=== PATIENT | male | born 1990 ===

== ENCOUNTER 2017-03-01 19:06 | Emergency (ER) | payer OTHER ==
[2017-03-01 19:56] VITALS: BP 117/70; PULSE 75; TEMP 98.2; O2SAT 99
--- NOTE | 2017-03-01 21:17 | C.PDOC ---
History Of Present Illness 26 year old male presents to the ED with complaints of right hand pain to second and third fingers following an accident at work. Patient states while at work his hand was stuck between an elevator and wall while attempting to fix the elevator. He notes he was wearing double gloves. Patient denies changes in sensation or other injuries. Time Seen by Provider: 03/01/17 20:01 Chief Complaint (Nursing): Finger,Hand,&Wrist History Per: Patient History/Exam Limitations: no limitations Onset/Duration Of Symptoms: Mins Current Symptoms Are (Timing): Still Present Recent travel outside of the [place]: No PMH Reviewed: Historical Data, Nursing Documentation, Vital Signs - Family History Family History: States: Unknown Family Hx - Immunization History Hx Tetanus Toxoid Vaccination: No Hx Influenza Vaccination: No Hx Pneumococcal Vaccination: No Review Of Systems Constitutional: Negative for: Fever, Chills Gastrointestinal: Negative for: Nausea, Vomiting Musculoskeletal: Positive for: Hand Pain (right hand pain ) Neurological: Negative for: Weakness, Numbness Pedatric Physical Exam - Physical Exam Appears: Non-toxic, No Acute Distress Skin: Warm, Dry Head: Atraumatic, Normacephalic Extremity: Normal ROM, Tenderness (second and third digit MCP joint ), Capillary Refill (good capillary refill, less than two seconds ), Swelling ( second and third digit MCP joint ) Pulses: Left Radial: Normal, Right Radial: Normal Neurological/Psych: Oriented x3 ED Course And Treatment O2 Sat by Pulse Oximetry: 99 (RA) - Other Rad Right Hand X-Ray X-Ray: Interpreted by Me, Viewed By Me Interpretation: No fracutres or dislocations. Progress Note: Right hand X-Ray was ordered. Volar splint was applied by CP and checked by me; and patient was given Tylenol. Disposition - Disposition Referrals: James Smith MD [Staff Provider] - Disposition: HOME/ ROUTINE Disposition Time: 21:12 Condition: STABLE Additional Instructions: Follow up with PMD and Hand specialist within 1-2 days. Return to Ed if feel worse. 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 - Scribe Statement The provider has reviewed the documentation as recorded by the Scribe Karolyn Gomez All medical record entries made by the Scribe were at my direction and personally dictated by me. I have reviewed the chart and agree that the record accurately reflects my personal performance of the history, physical exam, medical decision making, and the department course for this patient. I have also personally directed, reviewed, and agree with the discharge instructions and disposition.
[2017-03-01 21:27] VITALS: RESP 20
--- NOTE | 2017-03-02 00:32 | RAD ---
PROCEDURE: Right Hand Radiographs. HISTORY: FT 2 COMPARISON: None. FINDINGS: BONES: No fracture identified. JOINTS: No dislocation seen. Bony articulations appear maintained. SOFT TISSUES: Unremarkable OTHER FINDINGS: None. IMPRESSION: No fracture or dislocation identified.
== END 2017-03-01 21:27 | disposition home or self-care (01) ==
LOC: C.ER 19:06
DX: S60.221A Contusion of right hand, initial encounter (principal); W23.0XXA Caught, crushed, jammed, or pinched between moving objects, initial encounter; Y99.0 Civilian activity done for income or pay

== ENCOUNTER 2018-09-25 23:41 | Emergency (ER) | payer OTHER ==
[2018-09-26] MEDS ORDERED: Sodium Chloride 0.9% 500 ML IV ONE ×2 (00:35→00:42)
[2018-09-26 01:24] VITALS: TEMP 98.2
[2018-09-26 01:39] VITALS: RESP 20; O2SAT 97
--- NOTE | 2018-09-26 01:41 | C.PDOC ---
History Of Present Illness 27 year old male presents to the ED for evaluation of an allergic reaction that started one hour [employer]. Patient reports today while doing laundry he developed a sudden onset itchy rash all over his body. Patient states he took 75 mg of Benadryl at home [employer]. Patient denies previous allergic reaction, known allergens, fever, chills, facial swelling, lip swelling, tongue swelling, SOB, wheezing. Time Seen by Provider: 09/26/18 00:00 Chief Complaint (Nursing): Allergic Reaction History Per: Patient History/Exam Limitations: no limitations Onset/Duration Of Symptoms: Hrs Current Symptoms Are (Timing): Still Present Context: Other Possible Cause: Unknown Associated Symptoms: Skin Rash Home/EMS Treatment: Benadryl (75 mg) Recent travel outside of the [place]: No Additional History Per: Patient Past Medical History Reviewed: Historical Data, Nursing Documentation, Vital Signs Vital Signs: Last Vital Signs Temp 98.2 F 09/26/18 01:24 Pulse 84 09/26/18 01:24 Resp 20 09/26/18 01:38 BP 108/69 09/26/18 01:24 Pulse Ox 97 09/26/18 01:38 - Medical History PMH: No Chronic Diseases Surgical History: No Surg Hx Family History: States: Unknown Family Hx - Social History Hx Alcohol Use: No Hx Substance Use: No - Immunization History Hx Tetanus Toxoid Vaccination: No Hx Influenza Vaccination: No Hx Pneumococcal Vaccination: No Review Of Systems Constitutional: Negative for: Fever, Chills Eyes: Negative for: Vision Change ENT: Negative for: Mouth Swelling, Throat Swelling Respiratory: Negative for: Shortness of Breath, Wheezing Gastrointestinal: Negative for: Vomiting Skin: Positive for: Rash Neurological: Negative for: Headache, Dizziness Physical Exam - Physical Exam Appears: Non-toxic, No Acute Distress Skin: Warm, Dry, Rash (diffuse urticarial rash) Head: Atraumatic, Normacephalic, Swelling (bilateral lower eye-lids) Eye(s): bilateral: Normal Inspection, PERRL, EOMI Nose: No Discharge Oral Mucosa: Moist Tongue: No Swelling Lips: No Swelling Gingiva: No Swelling Throat: Normal, No Erythema, No Exudate, No Drooling, Other (uvula midline, airway patent) Neck: Normal ROM, Supple Chest: Symmetrical Cardiovascular: Rhythm Regular, No Friction Rub, No Murmur Respiratory: Normal Breath Sounds, No Rales, No Rhonchi, No Stridor, No Wheezing Gastrointestinal/Abdominal: Bowel Sounds (active), Soft, No Tenderness Back: Normal Inspection, No CVA Tenderness Extremity: Normal ROM, No Swelling Neurological/Psych: Oriented x3, Normal Speech, Normal Cognition, Normal Motor Gait: Steady ED Course And Treatment O2 Sat by Pulse Oximetry: 97 (ON RA) Pulse Ox Interpretation: Normal Medical Decision Making Medical Decision Making: Plan: * Pepcid 20 mg IVP * IV fluids * Solumedrol 125 mg IVP * Zofran 4 mg IVP Patient felt nausea. Zofran 4mg IV ordered. Patient reports improvement after medications. Rash improved, patient speaking in complete sentences, not wheezing, no facial swelling. Patient stable for D/C. Patient advised to continue using antihistamines at home and follow up with PMD. Disposition - Disposition Referrals: [facility] [Outside] Disposition: HOME/ ROUTINE Disposition Time: 02:04 Condition: IMPROVED Additional Instructions: Follow up with the medical doctor within 1-2 days. Return if worsened. 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 - Scribe Statement The provider has reviewed the documentation as recorded by the Scribchetan Herrmann All medical record entries made by the Kavon were at my direction and personally dictated by me. I have reviewed the chart and agree that the record accurately reflects my personal performance of the history, physical exam, medical decision making, and the department course for this patient. I have also personally directed, reviewed, and agree with the discharge instructions and disposition.
[2018-09-26 02:08] VITALS: BP 109/68; PULSE 67
== END 2018-09-26 02:13 | disposition home or self-care (01) ==
LOC: C.ER 23:41
DX: L50.0 Allergic urticaria (principal); T78.2XXA Anaphylactic shock, unspecified, initial encounter
CPT/HCPCS: 96374; 96375; 99285; J2405; J2930; J7040